=== PATIENT | female | born 1955 | race Caucasian/White ===

== ENCOUNTER → 2022-04-09 | Outpatient (CLI) | payer MEDICARE ==
--- NOTE | 2022-04-09 10:09 | USB ---
Reason for Exam: Clinical finding. Risk Values: Aurora 5 year model risk: 1.1%. NCI Lifetime model risk: 3.5%. Technique: Method: Whole Breast Handheld. Findings: The whole breast of the right breast, the axilla of the right breast and the retroareolar of the right breast were scanned. Complete ultrasound of the right breast was performed with additional evaluation the nipple and axilla. There is irregular hypoechoic region with posterior acoustic shadowing within the right breast at palpable abnormality and scar at 10:00 6 measuring the nipple. There is a questionable isoechoic ill-defined irregular mass along the more superficial aspect. No internal color flow is identified. This may represent scarring. Overall Assessment: Suspicious, BI-RAD 4 Management: Ultrasound Core Biopsy of the right breast. A clinical breast exam by your physician is recommended on an annual basis and results should be correlated with mammographic findings. This exam should not preclude additional follow-up of suspicious palpable abnormalities. Results were given to the patient verbally at the time of exam. Findings and recommendations were discussed with Dr. Ba Blank at time of dictation. Electronically signed and approved by: Jaret Martin D.O.
== END | disposition home or self-care (01) ==
LOC: RADUSWWP 09:31
PROVIDERS: ATTEND Surgery
DX: N64.4 Mastodynia (principal)

== ENCOUNTER → 2022-04-09 | Outpatient (CLI) | payer MEDICARE ==
[2022-04-09 09:09] VITALS: BP 144/89; PULSE 81; RESP 18
--- NOTE | 2022-04-09 09:23 | P.GSHP ---
History of Present Illness H&P Date: 04/09/22 Chief Complaint: lump right breast Rochelle is a 67 year old white female seen for an abnormal right breast ultrasound done on 12-24-21. She had a bilateral mammogram on 08-18-21 which was BIRAD 2. She than fell at [facility] on 11-05-21 and hit her right breast near a site of a prior biopsy. She had undergone a right breast incisional biopsy in 2020 which was benign. Ultrasound showed changes consistent with the biopsy site/possible resolving posttraumatic hematoma. She does feel some nodularity at the site where she fell which has been persistent. She also complains of some aching sensation radiating from the area of the nodularity to the axilla. She is not complaining of any other lumps masses or nodules of concern. She is not having any other surgery on her breast. She is not complaining of any nipple discharge or skin changes. caffiene: 2 cups/day nicotine: none chocolate: occasional BCP: 30 years Family History: father: kidney cancer mother: lung cancer brother: lung cancer Hormonal History: menarche: 10 , breast fed; yes, first : 16 menopause: 48 Surgical History: Cholecystectomy Medical history: daibetic She'll history: Nicotine: Negative Alcohol: Negative Drugs: Negative - Constitutional Constitutional: Denies chills, Denies fever - EENT Eyes: denies blurred vision, denies pain Ears: deny: decreased hearing, tinnitus Ears, nose, mouth and throat: Denies headache, Denies sore throat - Breasts Breasts: bilateral: as per HPI - Cardiovascular Cardiovascular: Denies chest pain, Denies shortness of breath - Respiratory Respiratory: Denies cough, Denies 7 - Gastrointestinal Gastrointestinal: Denies abdominal pain, Denies diarrhea, Denies nausea, Denies vomiting - Genitourinary (Female) Genitourinary: Denies dysuria, Denies hematuria - Menstruation Menstruation: Reports postmenopausal - Musculoskeletal Comment: arthritis - Integumentary Integumentary: Denies pruritus, Denies rash - Neurological Neurological: Denies numbness, Denies weakness - Psychiatric Psychiatric: Denies anxiety, Denies depression - Endocrine Endocrine: Denies fatigue, Denies weight change - Hematologic/Lymphatic Comment: none - Allergic/Immunologic Allergic/Immunologic: Reports as per HPI Surgical - Exam - General well developed, well nourished, no distress - Eyes normal ocular movement - Neck trachea midline - Respiratory normal respiratory effort, clear to auscultation - Cardiovascular Rhythm: regular Heart Sounds: normal: S1, S2 - Abdomen Abdomen: soft, non tender, no guarding, no rigid, no rebound - Integumentary normal turgor - Neurologic no disoriented, no combative - Musculoskeletal normal gait, normal posture - Psychiatric oriented to time, oriented to person, oriented to place, speech is normal, memory intact Breat Exam: BRA: 42C inspection: Healed scar right breast from prior surgery, bilateral grade 2 ptosis Palpation: Right breast: Multiple positional exam fibrocystic changes, well-healed scar in the upper mid breast with nodularity related most likely to scar tissue No other dominant masses or nodules of concern Right axilla: No adenopathy of concern Left breast: Multiple positional exam fibrocystic changes no dominant masses or nodules of concern Left axilla: No adenopathy of concern Assessment and Plan Assessment: Impression: fibrocystic breast changes Recent surgery right breast with scar tissue at site of surgery Diabetes Plan: Repeat ultrasound right breast obtain pathology repot form 2020 breast biopsy bilateral mammogram in July 2022 CC: Dr. Friend
== END ==
LOC: WWCWWP 08:52
PROVIDERS: ATTEND Surgery
DX: Z85.3 Personal history of malignant neoplasm of breast (principal); E11.9 Type 2 diabetes mellitus without complications

== ENCOUNTER → 2022-08-19 | Outpatient (CLI) | payer MEDICARE ==
[2022-08-19 12:02] VITALS: BP 145/79; PULSE 79; RESP 18; TEMP 97.8
== END ==
LOC: WWCWWP 10:51
PROVIDERS: ATTEND Surgery
DX: Z53.9 Procedure and treatment not carried out, unspecified reason (principal)

== ENCOUNTER → 2022-08-19 | Outpatient (CLI) | payer MEDICARE ==
--- NOTE | 2022-08-19 11:36 | MM ---
Reason for Exam: Follow-up at short interval from prior study. Last mammogram was performed 1 year(s) and 1 month(s) ago. Patient History: Menarche at age 10. First Full-Term at age 16. Postmenopausal. 04/10/2020, MG pre op needle loc RT on the Right side. 04/26/2022, Benign US biopsy breast VAD RT on the right side. Risk Values: Aurora 5 year model risk: 1.9%. NCI Lifetime model risk: 5.7%. Tissue Density: There are scattered fibroglandular densities. Findings: Analyzed By CAD. Postprocedural changes right breast with architectural distortion with biopsy clip in place. Findings may be smaller on today's exam given differences in technique. No new suspicious masses, calcifications or distortions. Overall Assessment: Benign, BI-RAD 2 Management: Screening Mammogram of both breasts in 1 year. Results were given to the patient verbally at the time of exam. Patient should continue monthly self-breast exams. A clinical breast exam by your physician is recommended on an annual basis. This exam should not preclude additional follow-up of suspicious palpable abnormalities. Note on Aurora scores and lifetime risk: 1. A Aurora score greater than 3% is considered moderate risk. If this is the case, consider specialist referral to assess eligibility for a risk reducing agent. 2. If overall lifetime risk for the development of breast cancer is 20% or higher, the patient may qualify for future screening with alternating mammogram and breast MRI. Electronically signed and approved by: Manjit Hemphill DO
--- NOTE | 2022-08-19 12:13 | P.PN ---
Subjective Progress Note Date: 08/19/22 Principal diagnosis: fibrocystic breast changes Fat necrosis Rochelle is a 67-year-old white female status post right breast ultrasound- guided core biopsy on 2622. Pathology revealed scar with fat necrosis. She had had some trauma to that site several months prior. She underwent a breast lumpectomy in 2020. She had undergone a right breast needle localization lumpectomy for microcalcifications of concern. She did not have any percutaneous biopsy. The excisional biopsy revealed focal atypical ductal hyperplasia, 1-21-21. She was started on anastrozole at that time by Dr. Palafox. She had a bilateral mammogram on 6122 which was benign BIRADS 2. She will hav e a right breast ultrasound in October 2022 as follow up for core biopsy. Patient is not complaining of any new lumps masses or nodules of concern. She stopped her anastrazole, and is doing well. Aurora Risk: 1.9% at 5 years NCI lifetime risk: 5.7% We have discussed chemoprevention and she declined. Caffeine: 2 cups per day Nicotine: Negative Chocolate: Occasional control pills: 30 years Family history: Father: Kidney cancer Mother: Lung cancer Brother: Lung cancer Hormonal history: Menarche: 10 , breast-fed, yes, first : 16 Menopause: 48 Surgical history: Cholecystectomy Right breast lumpectomy Medical history: Diabetic Social history: nicotine: Negative Alcohol: Negative Drugs: Negative Objective - Constitutional General appearance: Present: cooperative - EENT Eyes: Present: EOMI ENT: Present: hearing grossly normal - Neck Neck: Present: normal ROM - Respiratory Respiratory: bilateral: CTA - Cardiovascular Heart sounds: normal: S1, S2 - Gastrointestinal General gastrointestinal: Present: soft - Integumentary Integumentary: Present: normal turgor - Musculoskeletal Musculoskeletal: Present: gait normal - Psychiatric Psychiatric: Present: A&O x's 3, appropriate affect, intact judgment & insight - Additional findings Additional findings: Breast exam: BRA: 42C Inspection: Lateral grade 2 ptosis Well-healed scar right breast from prior biopsy Palpation: Right breast: Multi-positional exam fibrocystic changes no dominant masses or nodules of concern Right axilla: No adenopathy of concern Left breast: Multi-positional exam fibrocystic changes no dominant masses or nodules of concern Left axilla: No adenopathy of concern Assessment and Plan Assessment: Impression: Prior right breast open biopsy 2020 atypical ductal hyperplasia Patient has been on anastrozole since that time Patient recent ultrasound-guided core biopsy fat necrosis bilateral mammogram on 08-19-22 BIRAD 2 Plan: ultrasound in October of right breast and follow up at that time bilateral mammogram in 1 year Aurora risk 1.9 % at 5 years, lifetime risk 5.7% at this time the patient has opted to stop anastrozole, discussed risks and benefits and she understands. I have given her the option of seeing a medical oncologist to discuss this and she has declined. CC: Phuc
== END | disposition home or self-care (01) ==
LOC: RADMAMWWP 10:51
PROVIDERS: ATTEND Surgery
DX: R92.8 Other abnormal and inconclusive findings on diagnostic imaging of breast (principal); Z85.3 Personal history of malignant neoplasm of breast; Z78.0 Asymptomatic menopausal state
CPT/HCPCS: 77066; G0279; 77062

== ENCOUNTER → 2022-10-28 | Outpatient (CLI) | payer MEDICARE ==
--- NOTE | 2022-10-28 11:24 | USB ---
Reason for Exam: Follow-up at short interval from prior study. Patient History: Menarche at age 10. First Full-Term at age 16. Postmenopausal. 04/10/2020, MG pre op needle loc RT on the Right side. 04/26/2022, Benign US biopsy breast VAD RT on the right side. Risk Values: Aurora 5 year model risk: 1.9%. NCI Lifetime model risk: 5.7%. Technique: Method: Whole Breast Handheld. Prior Study Comparison: 08/18/2021 Bilateral MG 3D diag mammo w/cad [facility] - 2, [facility] [place]. 04/26/2022 Right MG diagnostic mammo RT wo CAD, [facility]. 08/19/2022 Bilateral MG 3D diag mammo w/cad [facility], [facility]. Findings: The whole breast of the right breast, the axilla of the right breast and the retroareolar of the right breast were scanned. Complete ultrasound of the right breast with additional evaluation of the nipple and axilla was performed. Redemonstration of biopsy proven scar at 10:00 within the right breast 6 cm from the nipple. This appears slightly decreased in appearance from prior examination. Overall Assessment: Benign, BI-RAD 2 Management: Screening Mammogram of both breasts in 6 months. A clinical breast exam by your physician is recommended on an annual basis and results should be correlated with mammographic findings. This exam should not preclude additional follow-up of suspicious palpable abnormalities. Results were given to the patient verbally at the time of exam. Electronically signed and approved by: Jaret Martin D.O.
== END | disposition home or self-care (01) ==
LOC: RADUSWWP 10:58
PROVIDERS: ATTEND Surgery
DX: Z78.0 Asymptomatic menopausal state (principal); Z85.3 Personal history of malignant neoplasm of breast

== ENCOUNTER → 2022-10-28 | Outpatient (CLI) | payer MEDICARE ==
[2022-10-28 12:11] VITALS: BP 134/80; PULSE 74; RESP 18; TEMP 98.4
--- NOTE | 2022-10-28 12:20 | P.PN ---
Subjective Progress Note Date: 10/28/22 fibrocystic breast changes Fat necrosis Rochelle is a 67-year-old white female status post right breast ultrasound- guided core biopsy on 2622. Pathology revealed scar with fat necrosis. She had had some trauma to that site several months prior. She underwent a breast lumpectomy in 2020. She had undergone a right breast needle localization lumpectomy for microcalcifications of concern. She did not have any percutaneous biopsy. 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 She was started on anastrozole at that time by Dr. Palafox. She had a bilateral mammogram on 6122 which was benign BIRADS 2. She will have a right breast ultrasound in October 2022 as follow up for core biopsy. Patient is not complaining of any new lumps masses or nodules of concern. She stopped her anastrazole, and is doing well. He has not discussed this with medical oncology but is happy to be off of it, it is not interested in restarting it at this time. ultrasound of the right breast was done on 10-28-22 BIRAD 2 Aurora Risk: 1.9% at 5 years NCI lifetime risk: 5.7% We have discussed chemoprevention and she declined. Caffeine: 2 cups per day Nicotine: Negative Chocolate: Occasional control pills: 30 years Family history: Father: Kidney cancer Mother: Lung cancer Brother: Lung cancer Hormonal history: Menarche: 10 , breast-fed, yes, first : 16 Menopause: 48 Surgical history: Cholecystectomy Right breast lumpectomy Medical history: Diabetic Social history: nicotine: Negative Alcohol: Negative Drugs: Negative The patient has declined examination at this time. She was just examined on 08-19-22. Objective - Vital Signs Vital signs: Vital Signs Temp 98.4 F 10/28/22 12:07 Pulse 74 10/28/22 12:07 Resp 18 10/28/22 12:07 BP 134/80 10/28/22 12:07 Pulse Ox 98 10/28/22 12:07 FiO2 Intake & Output 10/27/22 10/28/22 10/28/22 18:59 06:59 18:59 Weight 79.832 kg - Psychiatric Psychiatric: Present: A&O x's 3 Assessment and Plan Assessment: Impression: Prior right breast open biopsy 2020 atypical ductal hyperplasia Patient has been on anastrozole since that time. Recently opted to stop this Patient recent ultrasound-guided core biopsy fat necrosis bilateral mammogram on 08-19-22 BIRAD 2, [place] [address] BIRADS 2 Plan: bilateral mammogram in August 2023 Follow-up appointment after bilateral mammogram Patient to follow up sooner if she has any questions or concerns Aurora risk 1.9 % at 5 years, lifetime risk 5.7% at this time the patient has opted to stop anastrozole, discussed risks and benefits and she understands. I have given her the option of seeing a medical oncologist to discuss this and she has declined. CC: Phuc
== END ==
LOC: WWCWWP 10:57
PROVIDERS: ATTEND Surgery
DX: N60.11 Diffuse cystic mastopathy of right breast (principal); E11.9 Type 2 diabetes mellitus without complications; Z79.84 Long term (current) use of oral hypoglycemic drugs

== ENCOUNTER → 2023-08-22 | Outpatient (CLI) | payer MEDICARE ==
--- NOTE | 2023-08-22 19:00 | MM ---
Reason for Exam: Screening (asymptomatic). Last screening mammogram was performed 12 month(s) ago. Patient History: Menarche at age 10. First Full-Term at age 16. Postmenopausal. 04/10/2020, MG pre op needle loc RT on the Right side. 04/26/2022, Benign US biopsy breast VAD RT on the right side. Risk Values: Aurora 5 year model risk: 1.9%. NCI Lifetime model risk: 5.5%. Prior Study Comparison: 08/18/2021 Bilateral MG 3D diag mammo w/cad [facility] - 2, [facility] [place]. 04/26/2022 Right MG diagnostic mammo RT wo CAD, [facility]. 08/19/2022 Bilateral MG 3D diag mammo w/cad [facility], [facility]. Tissue Density: The breasts are heterogeneously dense, which may obscure small masses. Findings: Analyzed By CAD. Postexcisional changes redemonstrated lateral aspect of the right breast. A few benign rounded calcifications are redemonstrated. There is no suspicious group of microcalcifications or new suspicious mass in either breast. Overall Assessment: Benign, BI-RAD 2 Management: Screening Mammogram of both breasts in 1 year. . Patient should continue monthly self-breast exams. A clinical breast exam by your physician is recommended on an annual basis. This exam should not preclude additional follow-up of suspicious palpable abnormalities. Note on Aurora scores and lifetime risk: 1. A Aurora score greater than 3% is considered moderate risk. If this is the case, consider specialist referral to assess eligibility for a risk reducing agent. 2. If overall lifetime risk for the development of breast cancer is 20% or higher, the patient may qualify for future screening with alternating mammogram and breast MRI. Electronically signed and approved by: Cristina Hodge M.D. Radiologist
== END | disposition home or self-care (01) ==
LOC: RADMAMWWP 08:25
PROVIDERS: ATTEND Surgery
DX: Z12.31 Encounter for screening mammogram for malignant neoplasm of breast (principal); Z78.0 Asymptomatic menopausal state
CPT/HCPCS: 77063; 77067

== ENCOUNTER → 2023-09-15 | Outpatient (CLI) | payer MEDICARE ==
[2023-09-15 09:02] VITALS: BP 152/84; PULSE 84; RESP 17; TEMP 98.1
--- NOTE | 2023-09-15 09:35 | P.PN ---
Subjective Progress Note Date: 09/15/23 Principal diagnosis: fibrocystic breast changes 09-15-23 fibrocystic breast changes Fat necrosis Rochelle is a 68-year-old white female status post right breast ultrasound- guided core biopsy on 2622. Pathology revealed scar with fat necrosis. She had had some trauma to that site several months prior. She underwent a breast lumpectomy in 2020. She had undergone a right breast needle localization lumpectomy for microcalcifications of concern. She did not have any percuta neous biopsy. 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 She was started on anastrozole at that time by Dr. Palafox. She had a bilateral mammogram on which was benign BIRADS 2. Patient is not complaining of any new lumps masses or nodules of concern. She fell approximately 2 weeks ago and hit her left breast and does have some discomfort at that site. She did have 1 rib fracture noted at that time. She stopped her anastrazole about 1 year ago, and is doing well. He has not discussed this with medical oncology but is happy to be off of it, it is not interested in restarting it at this time. Aurora Risk: 1.9% at 5 years NCI lifetime risk: 5.5% We have discussed chemoprevention and she declined. Caffeine: 2 cups per day Nicotine: Negative Chocolate: Occasional control pills: 30 years Family history: Father: Kidney cancer Mother: Lung cancer Brother: Lung cancer Hormonal history: Menarche: 10 , breast-fed, yes, first : 16 Menopause: 48 Surgical history: Cholecystectomy Right breast lumpectomy bladder suspension/ hysterectomy Medical history: Diabetic Social history: nicotine: Negative Alcohol: Negative Drugs: Negative Objective - Vital Signs Vital signs: Vital Signs Temp 98.1 F 09/15/23 09:00 Pulse 84 09/15/23 09:00 Resp 17 09/15/23 09:00 BP 152/84 09/15/23 09:00 Pulse Ox 99 09/15/23 09:00 FiO2 Intake & Output 09/14/23 09/15/23 09/15/23 18:59 06:59 18:59 Weight 77.111 kg - Constitutional General appearance: Present: cooperative - EENT Eyes: Present: EOMI ENT: Present: hearing grossly normal - Neck Neck: Present: normal ROM Thyroid: bilateral: normal size - Respiratory Respiratory: bilateral: CTA - Cardiovascular Rhythm: regular Heart sounds: normal: S1, S2 - Integumentary Integumentary: Present: normal turgor - Musculoskeletal Musculoskeletal: Present: gait normal - Psychiatric Psychiatric: Present: A&O x's 3, appropriate affect, intact judgment & insight - Additional findings Additional findings: Breast Exam: BRA: 42C Inspection: Bilateral grade 2 ptosis, mild fullness left breast upper outer quadrant near area where patient fell and hit the region Palpation: Right breast: Multi positional exam fibrocystic changes no dominant masses or nodules of concern, well-healed scar from prior biopsy Right axilla: No adenopathy of concern Left breast: Multi positional exam fibrocystic changes fullness in the upper outer quadrant which is tender and most consistent with probable hematoma where the patient fell and hit that area Left axilla: No adenopathy of concern Assessment and Plan Assessment: Impression: Prior right breast open biopsy 2020 atypical ductal hyperplasia Patient has been on anastrozole since that time. Recently opted to stop this Patient recent ultrasound-guided core biopsy fat necrosis bilateral mammogram on 08-22-23 BIRD 2 fullness UOQ left breast near where fell and hit breast Plan: left breast ultrasound UOQ, follow up after this bilateral mammogram in August 2024 Follow-up appointment after bilateral mammogram Patient to follow up sooner if she has any questions or concerns Aurora risk 1.9 % at 5 years, lifetime risk 5.5% at this time the patient has opted to stop anastrozole, discussed risks and benefits and she understands. I have given her the option of seeing a medical oncologist to discuss this and she has declined. CC: Phuc
== END ==
LOC: WWCWWP 08:48
PROVIDERS: ATTEND Surgery
DX: N60.11 Diffuse cystic mastopathy of right breast (principal); N60.91 Unspecified benign mammary dysplasia of right breast; M79.89 Other specified soft tissue disorders; R92.0 Mammographic microcalcification found on diagnostic imaging of breast; Z48.817 Encounter for surgical aftercare following surgery on the skin and subcutaneous tissue

== ENCOUNTER → 2023-10-07 | Outpatient (CLI) | payer MEDICARE ==
--- NOTE | 2023-10-07 13:30 | USB ---
Reason for Exam: Clinical finding. Patient History: Menarche at age 10. First Full-Term at age 16. Postmenopausal. 04/10/2020, MG pre op needle loc RT on the Right side. 04/26/2022, Benign US biopsy breast VAD RT on the right side. Risk Values: Aurora 5 year model risk: 1.9%. NCI Lifetime model risk: 5.5%. Prior Study Comparison: 04/26/2022 Right MG diagnostic mammo RT wo CAD, [facility]. 08/19/2022 Bilateral MG 3D diag mammo w/cad [facility], [facility]. 10/28/2022 Right US breast RT, [facility]. 08/22/2023 Bilateral MG 3D screening mammo w/cad, [facility]. Findings: The upper outer quadrant of the left breast, the axilla of the left breast and the retroareolar of the left breast were scanned. Renal ultrasound upper outer quadrant left breast including scanning of the subareolar region and axilla. There is a benign cyst area measuring 3 mm at the 2:00 position, 7 cm from the nipple. Given echogenic guerrero and some posterior shadowing, this likely corresponds to the mammographic oil cyst. No other solid or cystic lesion or axillary lymphadenopathy. Overall Assessment: Benign, BI-RAD 2 Management: Screening Mammogram of both breasts in 11 months. Further clinical management of patient's left breast pain. The patient be rescanned if any palpable area develops. A clinical breast exam by your physician is recommended on an annual basis and results should be correlated with mammographic findings. This exam should not preclude additional follow-up of suspicious palpable abnormalities. Results were given to the patient verbally at the time of exam. Electronically signed and approved by: Cristina Hodge M.D. Radiologist
== END | disposition home or self-care (01) ==
LOC: RADUSWWP 12:58
PROVIDERS: ATTEND Surgery
DX: N64.4 Mastodynia (principal); Z78.0 Asymptomatic menopausal state

== ENCOUNTER → 2023-10-14 | Outpatient (CLI) | payer MEDICARE ==
[2023-10-14 09:14] VITALS: BP 161/84; PULSE 68; RESP 16; TEMP 97.6
--- NOTE | 2023-10-14 09:17 | P.PN ---
Subjective Progress Note Date: 10/14/23 09-15-23 Patient comes for results of ultrasound fibrocystic breast changes Fat necrosis Rochelle is a 68-year-old white female status post right breast ultrasound- guided core biopsy on 2622. Pathology revealed scar with fat necrosis. She had had some trauma to that site several months prior. She underwent a breast lumpectomy in 2020. She had undergone a right breast needle localization lumpectomy for microcalcifications of concern. She did not have any percutaneous biopsy. 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 She was started on anastrozole at that time by Dr. Palafox. She had a bilateral mammogram on which was benign BIRADS 2. Patient is not complaining of any new lumps masses or nodules of concern. She fell approximately 2 weeks ago and hit her left breast and does have some discomfort at that site. She did have 1 rib fracture noted at that time. She stopped her anastrazole about 1 year ago, and is doing well. He has not discussed this with medical oncology but is happy to be off of it, it is not interested in restarting it at this time. She had an ultrasound of the left breast on 10-07-23 This revealed a 3 mm cyst but nothing related to her recent trauma. This was personally reviewed and interpreted. Aurora Risk: 1.9% at 5 years NCI lifetime risk: 5.5% We have discussed chemoprevention and she declined. Caffeine: 2 cups per day Nicotine: Negative Chocolate: Occasional control pills: 30 years Family history: Father: Kidney cancer Mother: Lung cancer Brother: Lung cancer Hormonal history: Menarche: 10 , breast-fed, yes, first : 16 Menopause: 48 Surgical history: Cholecystectomy Right breast lumpectomy bladder suspension/ hysterectomy Medical history: Diabetic Social history: nicotine: Negative Alcohol: Negative Drugs: Negative Impression/Plan: Prior right breast open biopsy 2020 atypical ductal hyperplasia Patient had been on anastrozole and recently opted to stop this Recent ultrasound-guided core biopsy fat necrosis Fullness upper outer quadrant left breast where patient fell and hit breast but ultrasound of this area does not reveal any lesions of concern bilateral mammogram in August 2024 with appointment after this follow up sooner any concerns CC: Dr. Edmondson Objective - Vital Signs Vital signs: Vital Signs Temp 98.1 F 09/15/23 09:00 Pulse 84 09/15/23 09:00 Resp 17 09/15/23 09:00 BP 152/84 09/15/23 09:00 Pulse Ox 99 09/15/23 09:00 FiO2 Intake & Output 09/14/23 09/15/23 09/15/23 18:59 06:59 18:59 Weight 77.111 kg - Constitutional General appearance: Present: cooperative - EENT Eyes: Present: EOMI ENT: Present: hearing grossly normal - Neck Neck: Present: normal ROM Thyroid: bilateral: normal size - Respiratory Respiratory: bilateral: CTA - Cardiovascular Rhythm: regular Heart sounds: normal: S1, S2 - Integumentary Integumentary: Present: normal turgor - Musculoskeletal Musculoskeletal: Present: gait normal - Psychiatric Psychiatric: Present: A&O x's 3, appropriate affect, intact judgment & insight - Additional findings Additional findings: Breast Exam: BRA: 42C Inspection: Bilateral grade 2 ptosis, mild fullness left breast upper outer quadrant near area where patient fell and hit the region Palpation: Right breast: Multi positional exam fibrocystic changes no dominant masses or nodules of concern, well-healed scar from prior biopsy Right axilla: No adenopathy of concern Left breast: Multi positional exam fibrocystic changes fullness in the upper outer quadrant which is tender and most consistent with probable hematoma where the patient fell and hit that area Left axilla: No adenopathy of concern Assessment and Plan Assessment: Impression: Prior right breast open biopsy 2020 atypical ductal hyperplasia Patient has been on anastrozole since that time. Recently opted to stop this Patient recent ultrasound-guided core biopsy fat necrosis bilateral mammogram on 08-22-23 BIRD 2 fullness UOQ left breast near where fell and hit breast Plan: left breast ultrasound UOQ, follow up after this bilateral mammogram in August 2024 Follow-up appointment after bilateral mammogram Patient to follow up sooner if she has any questions or concerns Aurora risk 1.9 % at 5 years, lifetime risk 5.5% at this time the patient has opted to stop anastrozole, discussed risks and benefits and she understands. I have given her the option of seeing a medical oncologist to discuss this and she has declined. CC: Phuc Additional CC's: Jose Friend
== END ==
LOC: WWCWWP 08:44
PROVIDERS: ATTEND Surgery
DX: R92.8 Other abnormal and inconclusive findings on diagnostic imaging of breast (principal); N60.11 Diffuse cystic mastopathy of right breast; N60.91 Unspecified benign mammary dysplasia of right breast; N63.21 Unspecified lump in the left breast, upper outer quadrant; M79.89 Other specified soft tissue disorders; Z48.817 Encounter for surgical aftercare following surgery on the skin and subcutaneous tissue

== ENCOUNTER → 2024-08-24 | Outpatient (CLI) | payer MEDICARE ==
[2024-08-24 09:50] VITALS: BP 143/83; PULSE 86; RESP 16; TEMP 97.9
--- NOTE | 2024-08-24 09:54 | P.PN ---
Subjective Progress Note Date: 08/24/24 Principal diagnosis: fibrocystic breast changes 08-24-24 Principal diagnosis: fibrocystic breast changes Fat necrosis Rochelle is a 69-year-old white female status post right breast ultrasound- guided core biopsy on 2622. Pathology revealed scar with fat necrosis. She had had some trauma to that site several months prior. She underwent a breast lumpectomy in 2020. She had undergone a right breast needle localization venecia mpectomy for microcalcifications of concern. She did not have any percutaneous biopsy at that time. 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 She was started on anastrozole at that time by Dr. Palafox. She had a bilateral mammogram on which was benign BIRADS 2. Patient is not complaining of any new lumps masses or nodules of concern. She fell last year approximately 2 weeks prior to her appointment and hit her left breast and did have some discomfort at that site. She did have 1 rib fracture noted at that time. She stopped her anastrazole about 2 year ago, and is doing well. She has not discussed this with medical oncology but is happy to be off of it, it is not interested in restarting it at this time. Aurora Risk: 1.9% at 5 years NCI lifetime risk: 5.2% We have discussed chemoprevention and she declined. Caffeine: 2 cups per day Nicotine: Negative Chocolate: Occasional control pills: 30 years Family history: Father: Kidney cancer Mother: Lung cancer Brother: Lung cancer Hormonal history: Menarche: 10 , breast-fed, yes, first : 16 Menopause: 48 Surgical history: Cholecystectomy Right breast lumpectomy bladder suspension/ hysterectomy Medical history: Diabetic Social history: nicotine: Negative Alcohol: Negative Drugs: Negative Objective - Constitutional General appearance: Present: cooperative - EENT Eyes: Present: EOMI ENT: Present: hearing grossly normal - Neck Neck: Present: normal ROM - Respiratory Respiratory: bilateral: CTA - Cardiovascular Rhythm: regular Heart sounds: normal: S1, S2 - Integumentary Integumentary: Present: normal turgor - Musculoskeletal Musculoskeletal: Present: gait normal - Psychiatric Psychiatric: Present: A&O x's 3, appropriate affect, intact judgment & insight - Additional findings Additional findings: Breast Exam: BRA: 42C Inspection: Bilateral grade 2 ptosis Palpation: Right breast: Multi positional exam fibrocystic changes no dominant masses or nodules of concern, well-healed scar from prior biopsy Right axilla: No adenopathy of concern Left breast: Multi positional exam fibrocystic changes no dominate masses or nodules of concern Left axilla: No adenopathy of concern Assessment and Plan Assessment: Impression: Prior right breast open biopsy 2020 atypical ductal hyperplasia Patient has been on anastrozole since that time. Recently opted to stop this ultrasound-guided core biopsy fat necrosis bilateral mammogram on 08-22-24 BIRD 2, personally reviewed fullness UOQ left breast near where fell and hit breast Plan: bilateral mammogram in August 2025 Follow-up appointment after bilateral mammogram Patient to follow up sooner if she has any questions or concerns Aurora risk 1.9 % at 5 years, lifetime risk 5.5% at this time the patient has opted to stop anastrozole, discussed risks and benefits and she understands. I have given her the option of seeing a medical oncologist to discuss this and she has declined. CC: Phuc
== END ==
LOC: WWCWWP 09:37
PROVIDERS: ATTEND Surgery
DX: Z12.31 Encounter for screening mammogram for malignant neoplasm of breast (principal); N60.11 Diffuse cystic mastopathy of right breast